=== PATIENT | male | born 1965 ===

== ENCOUNTER 2017-01-22 12:41 | Emergency (ER) | payer OTHER ==
[~2017-01-22] VITALS: Ht 172.7 cm; Wt 75.5 kg
[~2017-01-22 12:41] MED LIST: WARF5 PO
[2017-01-22 12:42] VITALS: BP 127/78; PULSE 69; RESP 15; TEMP 98.2; O2SAT 98
[2017-01-22] MEDS ORDERED: COUM5TAB PO (13:09)
[2017-01-22] MEDS ORDERED: COUM7.5T PO (13:10)
--- NOTE | 2017-01-22 13:33 | PD ---
HPI Chief Complaint: Medical Clearance Time Seen by Provider: 13:33 Travel History International Travel<30 days: No Contact w/Intl Traveler<30days: No Traveled to known affect area: No History of Present Illness HPI 51-year-old male is brought to the emergency department voluntarily for psychiatric evaluation. There is a police report sheet written for transportation stating that the patient's sister called concerned about the patient's mental health and the patient agreed to come voluntarily for evaluation. 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 States that he has been living in a tent in his sister's back yard for the last 3 months due to his financial difficulties. States that he has a strained relationship with his sister and they were engaged in an argument today and he packed up his tandem walked 7 [address] to a campground. States that he called his brother and expressed how upset he was to his brother and that he used the phrase "I might as well not even be around" which is what was told to the officer. The patient states that he did not mean that in a suicidal contacts and denies any thoughts of harming himself. Denies any history of depression or anxiety or any psychiatric illnesses. Denies any attempts to harm himself. Denies any alcohol or drug use. The patient's only complaint at this time is that he feels dehydrated from walking outside a long distance today. No other complaints. PFSH Past Medical History Cancer: No Cardiovascular Problems: Yes Chest Pain: No Cerebrovascular Accident: Yes (tia x3) Diminished Hearing: No Endocrine: No Gastrointestinal Disorders: Yes GERD: No Genitourinary: No Hiatal Hernia: No Immune Disorder: No Neurologic: Yes (PERSISTENT STROKE LIKE SYMPTOMS) Psychiatric: No Reproductive: No Respiratory: No Immunizations Current: Yes Tetanus Vaccination: > 5 Years Influenza Vaccination: No Past Surgical History Other Surgery: Yes Social History Alcohol Use: Yes (SOC) Tobacco Use: Yes (1 1/2-2PPD) Substance Use: No Allergies-Medications (Allergen,Severity, Reaction): Coded Allergies: No Known Allergies (Unverified , 01/22/17) Reported Meds & Prescriptions Reported Meds & Active Scripts Active Reported Coumadin (Warfarin) 7.5 Mg Tab 7.5 Mg PO DIRECTED Coumadin (Warfarin) 5 Mg Tab 5 Mg PO DIRECTED Review of Systems Except as stated in HPI: all other systems reviewed are Neg Physical Exam Narrative GENERAL: Well-nourished and well-developed pleasant patient in no acute distress who is nontoxic appearing. SKIN: Warm and dry. HEAD: Normocephalic and atraumatic. EYES: No injection, drainage, or hyphema noted. PERRLA. EOMI. ENT: No nasal drainage noted. Oropharynx is clear. NECK: Supple and the trachea is midline. CARDIOVASCULAR: Regular rate and rhythm. RESPIRATORY: Breath sounds are equal bilaterally with no accessory muscle use, wheezing, rhonchi, or crackles. GASTROINTESTINAL: Abdomen is soft, non-tender, and nondistended. MUSCULOSKELETAL: No obvious deformities, swelling, cyanosis, or ecchymosis is present throughout the upper and lower extremities. Patient has full range of motion without any signs of neurovascular compromise. NEUROLOGICAL: Awake, alert, and oriented. Normal speech and gait. Cranial nerves are grossly intact. PSYCHIATRIC: No delusional thought processes. No hallucinations. Data Data Last Documented VS Vital Signs Date Time Temp Pulse Resp B/P Pulse Ox O2 Delivery O2 Flow Rate FiO2 01/22/17 12:42 98.2 69 15 127/78 98 Orders Basic Metabolic Panel (Bmp) (01/22/17 12:57) Complete Blood Count With Diff (01/22/17 12:57) Prothrombin Time / Inr (Pt) (01/22/17 12:57) Ecg Monitoring (01/22/17 12:57) Oximetry (01/22/17 12:57) Psych Screen (01/22/17 12:57) Drug Screen, Random Urine (01/22/17 12:57) Alcohol (Ethanol) (01/22/17 12:57) Labs Laboratory Tests Test 01/22/17 01/22/17 13:10 13:45 White Blood Count 7.0 TH/MM3 Red Blood Count 4.93 MIL/MM3 Hemoglobin 15.0 GM/DL Hematocrit 44.2 % Mean Corpuscular Volume 89.8 FL Mean Corpuscular Hemoglobin 30.4 PG Mean Corpuscular Hemoglobin 33.8 % Concent Red Cell Distribution Width 15.0 % Platelet Count 249 TH/MM3 Mean Platelet Volume 7.7 FL Neutrophils (%) (Auto) 72.9 % Lymphocytes (%) (Auto) 18.4 % Monocytes (%) (Auto) 7.1 % Eosinophils (%) (Auto) 0.8 % Basophils (%) (Auto) 0.8 % Neutrophils # (Auto) 5.1 TH/MM3 Lymphocytes # (Auto) 1.3 TH/MM3 Monocytes # (Auto) 0.5 TH/MM3 Eosinophils # (Auto) 0.1 TH/MM3 Basophils # (Auto) 0.1 TH/MM3 CBC Comment DIFF FINAL Differential Comment Prothrombin Time 26.4 SEC Prothromb Time International 2.3 RATIO Ratio Sodium Level 140 MEQ/L Potassium Level 4.2 MEQ/L Chloride Level 104 MEQ/L Carbon Dioxide Level 30.3 MEQ/L Anion Gap 6 MEQ/L Blood Urea Nitrogen 15 MG/DL Creatinine 1.23 MG/DL Estimat Glomerular Filtration 63 ML/MIN Rate Random Glucose 90 MG/DL Calcium Level 9.2 MG/DL Ethyl Alcohol Level LESS THAN 3 MG/DL Urine Opiates Screen NEG Urine Barbiturates Screen NEG Urine Amphetamines Screen NEG Urine Benzodiazepines Screen NEG Urine Cocaine Screen NEG Urine Cannabinoids Screen NEG MDM Medical Decision Making Medical Screen Exam Complete: Yes Emergency Medical Condition: Yes Differential Diagnosis Adjustment disorder versus situational stress versus medical clearance Narrative Course 51-year-old male presents to the emergency department voluntarily for psychiatric evaluation. The patient is afebrile, vital signs are stable. Physical examination is unremarkable. I had a long discussion with the patient and he is very reasonable. He does not seem to exhibit any signs of suicidality. He does agree to stay and speak with the psych nurse voluntarily who may provide outpatient resources for him. I do not think that he meets [place] act criteria. We will check labs since he was outside for a long period of time today and feels dehydrated and we'll check an INR because he is on warfarin and has not had it checked in the last month. CBC is unremarkable. BMP is unremarkable. Urine tox is negative. EtOH is less than 3. INR is 2.3, this is therapeutic. Patient is medically cleared for psychiatric evaluation and disposition. Diagnosis Primary Impression: Situational stress Condition: Stable Emilie Rai Jan 22, 2017 13:33
[2017-01-22 13:46] LABS: AUTOMATED NEUTROPHIL # 5.1 TH/MM3 (1.8-7.7); BASOPHIL # 0.1 TH/MM3 (0-0.2); BASOPHIL % 0.8 % (0.0-2.0); EOSINOPHIL # 0.1 TH/MM3 (0-0.4); EOSINOPHIL % 0.8 % (0.0-4.0); HEMATOCRIT 44.2 % (39.0-51.0); HEMO FLAGS DIFF FINAL; LYMPH % 18.4 % (9.0-44.0); LYMPHOCYTE # 1.3 TH/MM3 (1.0-4.8); MEAN CELL VOLUME 89.8 FL (80.0-100.0); MEAN CORPUSCULAR HEMOGLOBIN 30.4 PG (27.0-34.0); MEAN CORPUSCULAR HGB CONC 33.8 % (32.0-36.0); MONO % 7.1 % (0.0-8.0); NEUT % 72.9 % (16.0-70.0); PLATELET COUNT 249 TH/MM3 (150-450); RED BLOOD COUNT 4.93 MIL/MM3 (4.50-5.90)
[2017-01-22 13:56] LABS: INTERNATIONAL NORMALIZED RATIO 2.3 RATIO; PROTHROMBIN TIME - PATIENT 26.4 SEC (9.8-11.6)
[2017-01-22 14:02] LABS: ANION GAP 6 MEQ/L (5-15); BICARBONATE 30.3 MEQ/L (21.0-32.0); BLOOD UREA NITROGEN 15 MG/DL (7-18); CHLORIDE 104 MEQ/L (98-107); GLOMERULAR FILTRATION RATE 63 ML/MIN (>89); POTASSIUM 4.2 MEQ/L (3.5-5.1); SODIUM (NA) 140 MEQ/L (136-145)
[2017-01-22 14:07] LABS: AMPHETAMINE, URINE NEG (NEG); BARBITURATES, URINE NEG (NEG); COCAINE, URINE NEG (NEG)
[2017-01-22] MEDS ORDERED: WARFARIN SOD 7.5 MG TAB PO ONE (18:00)
[2017-01-22 18:51] VITALS: BP 147/82; PULSE 53; RESP 16; TEMP 97.4; O2SAT 100
== END 2017-01-22 18:53 | disposition home or self-care (01) ==
LOC: NEPD 12:41 → NEPJ 18:53
DX: Z73.3 Stress, not elsewhere classified (principal); F17.210 Nicotine dependence, cigarettes, uncomplicated; Z86.73 Personal history of transient ischemic attack (TIA), and cerebral infarction without residual deficits
CPT/HCPCS: 80048; 80307; 85025; 85610; 99283